=== PATIENT | female | born 1955 | race Asian ===

== ENCOUNTER 2023-11-02 09:31 | Emergency (ER) | payer MEDICARE, OTHER, SELFPAY ==
[2023-11-02] VITALS (9 sets, daily range): BP systolic 149–182; BP diastolic 66–77; PULSE 58–71; RESP 14–48; TEMP 36.3; O2SAT 98–100; BMI 17.9
--- NOTE | 2023-11-02 09:48 | EKG_ITS ---
[address] [address] Test Date: 2023-11-02 Pat Name: Lakshmi Murillo Department: ED Room: Gender: Female Window And Door Installer: Nikita Preston : 1955 Requested By: Order Number: [id number] Reading MD: Juan Alberto Hollis Measurements Intervals [place] Rate: 72 P: 86 OK: 164 QRS: 77 QRSD: 78 T: 75 QT: 404 QTc: 442 Interpretive Statements Normal sinus rhythm Possible Left atrial enlargement Electronically Signed On 11-06-2023 9:14:32 PDT by Juan Alberto Hollis
--- NOTE | 2023-11-02 10:43 | ED.WEAKNESS ---
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 She has not anticoagulation takes amlodipine for blood pressure. She reports increasing fatigue. She was actually seen evaluated it would be Hospital on 10/27/2023 for a shaking spasm episode. feels like she may have had a seizure. She had some mild shaking and confusion afterwards and had some left-sided numbness which was new. At that time she had a workup including head CT and CT angio stroke consult was done who recommended an MRI. However after 8 hours of waiting family decided that they did not want to wait for the MRI. Related Data Home Medications Medication Instructions Recorded Confirmed isosorbide mononitrate 30 mg 30 mg PO DAILY 11/02/23 11/02/23 tablet,extended release 24 hr meclizine 25 mg tablet 12.5 mg PO TID PRN 11/02/23 11/02/23 pantoprazole 40 mg tablet,delayed 40 mg PO BID 11/02/23 11/02/23 release triamterene 37.5 See Rx Instructions PO .COMPLEX 11/02/23 11/02/23 mg-hydrochlorothiazide 25 mg tablet Previous Rx's Medication Instructions Recorded levetiracetam 500 mg tablet 500 mg PO Q12H #60 tabs 11/02/23 ([place]) Allergies Allergy/AdvReac Type Severity Reaction Status Date / Time No Known Drug Allergies Allergy Verified 11/02/23 09:38 Patient History Social History Smoking Status: Unknown if ever smoked Smoking Status: Unknown if ever smoked alcohol intake frequency: holidays/special occasions only Substance Use Type: does not use Exam Initial Vital Signs Initial Vital Signs: Vital Signs Temperature 97.4 F L 11/02/23 09:38 Pulse Rate 71 11/02/23 09:38 Respiratory Rate 14 11/02/23 09:38 Blood Pressure 149/66 H 11/02/23 09:38 Pulse Oximetry 99 11/02/23 09:38 Oxygen Delivery Method Room Air 11/02/23 09:38 GENERAL: Alert pleasant 68-year-old female HEENT: Head atraumatic,EOMI, pupils reactive, face symmetric, moist mucous membranes CARDIOVASCULAR: Regular rate and rhythm without murmurs, rubs or gallops. RESPIRATORY: Breath sounds equal bilaterally, no wheezes rales or rhonchi. ABDOMEN: Soft, nontender. Normoactive bowel sounds all 4 quadrants. No guarding or rebound. EXTREMITIES: Normal range of motion, no clubbing or edema. Neurovascularly intact NEUROLOGICAL: Alert and oriented x4. Persistent right-sided weakness left side good strength is strong in both arm and leg no facial droop SKIN: Warm, dry, no laceration, no petechiae, no rashes or lesions. Course Orders Ordered: ED Orders 11/02/23 09:42 EKG-12 Lead Stat 11/02/23 11:15 XR chest 1V Stat 11/02/23 11:16 MR head/brain wo con Stat 11/02/23 11:33 COVID19 -Nasal RAPID Stat 11/02/23 11:57 Complete Blood Count AUTO DIFF Stat Comprehensive Metabolic Panel Stat Lipase Stat PTT Partial Thromboplastin Gilberto Stat Prothrombin Time INR Stat Troponin & CK Cardiac Panel Stat Vital Signs Vital signs: Vital Signs - 8 hr 11/02/23 09:38 11/02/23 10:42 11/02/23 10:43 Temperature 97.4 F L Pulse Rate 71 68 Respiratory Rate 14 Blood Pressure 149/66 H 182/77 H Pulse Oximetry 99 99 Oxygen Delivery Method Room Air 11/02/23 10:43 11/02/23 11:00 11/02/23 11:00 Temperature Pulse Rate 65 58 L Respiratory Rate Blood Pressure 153/67 H Pulse Oximetry 99 99 Oxygen Delivery Method 11/02/23 11:30 11/02/23 12:41 11/02/23 12:43 Temperature Pulse Rate 59 L 64 61 Respiratory Rate 16 Blood Pressure Pulse Oximetry 99 99 100 Oxygen Delivery Method 11/02/23 12:43 Temperature Pulse Rate Respiratory Rate Blood Pressure 157/70 H Pulse Oximetry Oxygen Delivery Method MDM - Weakness Lab Data 11/02/23 11:57 11/02/23 11:57 Labs: Lab Results 11/02/23 11/02/23 Range/Units 11:33 11:57 WBC 5.6 (4.5-11.0) X10^3/uL RBC 4.26 (4.0-5.2) X10^6/uL Hgb 13.2 (12.0-16.0) g/dL Hct 37.3 (36-46) % MCV 87.5 (80-100) fL MCH 31.1 (26-34) PG MCHC 35.5 (30-36) % RDW 12.3 (11.6-14.8) % Plt Count 220 (150-400) X10^3/uL Neut % (Auto) 63.1 (50-75) % Lymph % (Auto) 29.2 (25-40) % [place] % (Auto) 6.0 (3-14) % Eos % (Auto) 1.1 L (2-4) % Baso % (Auto) 0.6 (0-2) % Neut # (Auto) 3500 (2164-7456) /uL Lymph # (Auto) 1600 (1399-6604) /uL [place] # (Auto) 300 (0-900) /uL Eos # (Auto) 100 (0-450) /uL Baso # (Auto) 0 (0-100) /uL PT 10.7 (9.4-12.5) SECONDS INR 0.9 (0.9-1.3) APTT 37 H (25.1-36.5) SECONDS Sodium 131 L (137-145) mmol/L Potassium 3.9 (3.4-5.1) mmol/L Chloride 93 L (98-107) mmol/L Carbon Dioxide 27 (22-32) mmol/L BUN 13 (7-17) mg/dL Creatinine 0.57 (0.52-1.04) mg/dL Estimated GFR > 60 (>60) mL/min BUN/Creatinine Ratio 22.8 H (6-22) Glucose 95 (80-110) mg/dL Calcium 9.6 (8.4-10.2) mg/dL Total Bilirubin 0.6 (0.2-1.3) mg/dL AST 27 (14-36) IU/L ALT 24 (<35) IU/L Alkaline Phosphatase 93 (38-126) U/L Total Creatine Kinase 46 (30-135) U/L Troponin I < 0.012 (0.01-0.034) ng/mL Total Protein 7.5 (6.3-8.2) g/dL Albumin 4.7 (3.5-5.0) g/dL Globulin 2.8 (1.7-4.1) g/dL Albumin/Globulin Ratio 1.7 (1.0-2.8) Lipase 112 (23-300) U/L SARS-CoV-2 (PCR) Negative (Negative) Urine Dip Bedside Urine Glucose Negative Bedside Urine Bilirubin - Negative Bedside Urine Ketone - Negative Urine Specific [place] 1.010 Bedside Urine Occult Blood - Negative Bedside Urine pH 7 Bedside Urine Protein - Negative Bedside Urine Urobilinogen - Negative Bedside Urine Nitrite - Negative Bedside Urine Leukocytes - Negative Esterase Imaging Data Chest x-ray: Radiologist Impression: PROCEDURE: XR CHEST 1V INDICATIONS: chest pain TECHNIQUE: One view of the chest was acquired. COMPARISON: None. FINDINGS: Overlying EKG lead slightly limit evaluation. Surgical changes and devices: None. Lungs and pleura: Lungs are clear. Prominent right-sided nipple shadow. No pleural effusions or pneumothorax. Mediastinum: Mediastinal contours appear normal. Heart size is normal. Bones and chest wall: No suspicious bony lesions. Overlying soft tissues appear unremarkable. IMPRESSION: No acute cardiopulmonary process. Dictated by: Feng Rodriguez M.D. on 11/02/2023 at 12:23 MR Brain: Radiologist Impression: PROCEDURE: MR HEAD/BRAIN WO CON INDICATIONS: new onset weakness x 1 week prior cva TECHNIQUE: Non-contrast axial T1 spin echo, axial T2 fast spin echo, sagittal and axial FLAIR, coronal T2 fast spin echo, axial gradient echo, axial diffusion and ADC through the brain. COMPARISON: [facility], , XR CHEST 1V, 11/02/2023, 11:32. FINDINGS: Image quality: Excellent. CSF spaces: Ventricles appear symmetric in size and shape. Basal cisterns are patent. No extra-axial fluid collections. Brain: Focal encephalomalacia and volume loss can be seen involving the posterior superior aspect of the left cerebral hemisphere. Hemosiderin deposition can be seen at this site. No intracranial mass effects. There is cerebral volume loss for age. There are periventricular and deep white matter chronic small vessel ischemic changes. Brainstem appears normal. Diffusion-weighted images show no acute infarct. Normal intravascular flow voids are present. Symmetric calcification can be seen involving the basal ganglia, which is considered to be normal for age. Skull and face: Left-sided craniotomy change is seen. Calvarial bone marrow is normal in signal. Orbits are normal. Sinuses: Sinuses and mastoids are clear. IMPRESSION: No acute intracranial hemorrhage is seen. No acute intracranial process is seen. Focal volume loss and encephalomalacia seen involving the posterior superior left cerebral hemisphere. Hemosiderin deposition can be seen at this site. Prior section change is suspected. However, please correlate with known patient history. Dictated by: Franko Verduzco M.D. on 11/02/2023 at 12:13 ECG Data Attestation: I personally reviewed and interpreted this ECG as follows: Interpretation: Normal sinus rhythm rate 72 MN interval 164 QRS 70 MDM Narrative Medical decision making narrative: MDM CC: Ongoing weakness Complicating co-morbidities: Prior intracranial hemorrhage in 2021 with craniectomy possible recent seizure Data collected from: Medical records reviewed: [facility] Differential considered: Infection, CVA Exam documented above, pertinent findings include: Persistent right-sided deficits secondary to previous stroke she is awake and alert mildly Lab Test results independently reviewed as above. Pertinent findings: WBC 5.6 hemoglobin 13.2 hematocrit 37.3 platelets 220, sodium 131 (previously 132) potassium 3.9 chloride 93 carbon dioxide 27 BUN 13 creatinine 0.5, bilirubin 0.6 AST 27 ALT 24 alk-phos 93 troponin negative COVID negative Urinalysis negative Independently reviewed EKG as above: Sinus rhythm without ischemia Imaging studies independently reviewed: Chest x-ray no acute cardiopulmonary process MRI no acute process however focal volume loss and encephalomalacia involving posterior superior left cerebral hemisphere Consultations: none Treatments: none Discussion: Patient is 68-year-old female presenting today with ongoing weakness. Weakness has been ongoing for about 1 week. Patient and report that she previously was doing elliptical and walking 2 miles a day however she had a probable seizure about a week ago. She has been seen by PCP she now has referrals to Cardiology and Neurology but they have not yet gone through. She has not had any sort of recurrent seizure. They state that she previously was on Keppra for about a year after her stroke but they took her off of it. It sounds like patient and has been did not want her to be on it any longer. Blood work has been reviewed she has very mild hyponatremia of 131 which is relatively stable last week was 132 unlikely causing her symptoms. She has no evidence of infection leukocytosis COVID. At this time discussed with him about restarting Keppra in the event that she just had a seizure. They are agreeable to this I think it is reasonable her MRI does have a pretty large remote infarct. I do in encourage them to continue neurology consultation and to return to the ED if there is recurrent seizure. She does not drive at baseline. Discharge Plan Departure Patient Disposition: Home Clinical Impression: Seizure Instructions: DI for Seizure Disorder -- Adult Activity Restrictions/Additional Instructions: *You have been diagnosed with seizure, fatigue *What to do: At this time no cause of your increased fatigue. I recommend activity as tolerated. Please see neurology and cardiology as scheduled Do not drive *Continue to take medications as directed Keppra 500 mg twice a day *Follow up with your primary care provider in 2-3 days or call [phone] *Return to ER if you should have recurrent seizure increased confusion weakness or any new, worsening or concerning symptoms Prescriptions: New levetiracetam [Keppra] 500 mg tablet 500 mg PO Q12H Qty: 60 0RF No Action triamterene-hydrochlorothiazid 37.5-25 mg tablet See Rx Instructions PO .COMPLEX Rx Instructions: 1 po on Monday, Wednesdays and Fridays only pantoprazole 40 mg tablet,delayed release (DR/EC) 40 mg PO BID isosorbide mononitrate 30 mg tablet extended release 24 hr 30 mg PO DAILY meclizine 25 mg tablet 12.5 mg PO TID PRN Referrals: Aida Okeefe FNP-YELENA [Primary Care Provider] - Stand Alone Forms: Patient Portal/API
--- NOTE | 2023-11-02 11:15 | DI.RAD.S_ITS ---
PROCEDURE: XR CHEST 1V INDICATIONS: chest pain TECHNIQUE: One view of the chest was acquired. COMPARISON: None. FINDINGS: Overlying EKG lead slightly limit evaluation. Surgical changes and devices: None. Lungs and pleura: Lungs are clear. Prominent right-sided nipple shadow. No pleural effusions or pneumothorax. Mediastinum: Mediastinal contours appear normal. Heart size is normal. Bones and chest wall: No suspicious bony lesions. Overlying soft tissues appear unremarkable. IMPRESSION: No acute cardiopulmonary process. Dictated by: Feng Rodriguez M.D. on 11/02/2023 at 12:23 Approved by: Feng Rodriguez M.D. on 11/02/2023 at 12:23
--- NOTE | 2023-11-02 11:16 | DI.MRI.S_ITS ---
PROCEDURE: MR HEAD/BRAIN WO CON INDICATIONS: new onset weakness x 1 week prior cva TECHNIQUE: Non-contrast axial T1 spin echo, axial T2 fast spin echo, sagittal and axial FLAIR, coronal T2 fast spin echo, axial gradient echo, axial diffusion and ADC through the brain. COMPARISON: [facility], CR, XR CHEST 1V, 11/02/2023, 11:32. FINDINGS: Image quality: Excellent. CSF spaces: Ventricles appear symmetric in size and shape. Basal cisterns are patent. No extra-axial fluid collections. Brain: Focal encephalomalacia and volume loss can be seen involving the posterior superior aspect of the left cerebral hemisphere. Hemosiderin deposition can be seen at this site. No intracranial mass effects. There is cerebral volume loss for age. There are periventricular and deep white matter chronic small vessel ischemic changes. Brainstem appears normal. Diffusion-weighted images show no acute infarct. Normal intravascular flow voids are present. Symmetric calcification can be seen involving the basal ganglia, which is considered to be normal for age. Skull and face: Left-sided craniotomy change is seen. Calvarial bone marrow is normal in signal. Orbits are normal. Sinuses: Sinuses and mastoids are clear. IMPRESSION: No acute intracranial hemorrhage is seen. No acute intracranial process is seen. Focal volume loss and encephalomalacia seen involving the posterior superior left cerebral hemisphere. Hemosiderin deposition can be seen at this site. Prior section change is suspected. However, please correlate with known patient history. Dictated by: Franko Verduzco M.D. on 11/02/2023 at 12:13 Approved by: Franko Verduzco M.D. on 11/02/2023 at 12:14
[2023-11-02 12:10] LABS: Add Manual Diff / Slide Review NO; Basophils Absolute Auto 0 /uL (0-100); Basophils Percent Auto 0.6 % (0-2); Eosinophils Absolute Auto 100 /uL (0-450); Eosinophils Percent Auto 1.1 % (2-4); Hematocrit 37.3 % (36-46); Hemoglobin 13.2 g/dL (12.0-16.0); Lymphocytes Absolute Auto 1600 /uL (1100-4500); Lymphocytes Percent Auto 29.2 % (25-40); Mean Corpuscular HGB Conc 35.5 % (30-36); Mean Corpuscular Hemoglobin 31.1 PG (26-34); Mean Corpuscular Volume 87.5 fL (80-100); Monocytes Absolute Auto 300 /uL (0-900); Neutrophils Absolute Auto 3500 /uL (1500-7000); Neutrophils Percent Auto 63.1 % (50-75); Platelet Count 220 X10^3/uL (150-400); Red Blood Cell Count 4.26 X10^6/uL (4.0-5.2); Red Cell Distribution Width 12.3 % (11.6-14.8); White Blood Cell Count 5.6 X10^3/uL (4.5-11.0)
[2023-11-02 12:13] LABS: INR 0.9 (0.9-1.3); Prothrombin Time 10.7 SECONDS (9.4-12.5)
[2023-11-02 12:16] LABS: PTT Partial Thromboplastin Tim 37 SECONDS (25.1-36.5)
[2023-11-02 12:23] LABS: COVID19 -Nasal RAPID Negative (Negative)
[2023-11-02 12:24] LABS: Alanine Aminotransferase 24 IU/L (<35); Albumin 4.7 g/dL (3.5-5.0); Albumin Globulin Ratio 1.7 (1.0-2.8); Alkaline Phosphatase 93 U/L (38-126); Aspartate Aminotransferase 27 IU/L (14-36); BUN Creatinine Ratio 22.8 (6-22); Bilirubin Total 0.6 mg/dL (0.2-1.3); Blood Urea Nitrogen 13 mg/dL (7-17); Calcium 9.6 mg/dL (8.4-10.2); Carbon Dioxide 27 mmol/L (22-32); Chloride 93 mmol/L (98-107); Creatine Kinase 46 U/L (30-135); Estimated Glomerular Filt Rate > 60 mL/min (>60); Globulin 2.8 g/dL (1.7-4.1); Glucose 95 mg/dL (80-110); HEMOLYSIS 22 (0-50); Lipase 112 U/L (23-300); Potassium 3.9 mmol/L (3.4-5.1); Sodium 131 mmol/L (137-145); Total Protein 7.5 g/dL (6.3-8.2)
[2023-11-02 12:32] LABS: Troponin I < 0.012 ng/mL (0.01-0.034)
== END 2023-11-02 13:40 | disposition home or self-care (01) ==
PROVIDERS: Emergency Provider Emergency Medicine; PCP Nurse Practitioner Family
DX: R56.9 Unspecified convulsions (principal); R07.9 Chest pain, unspecified; Z11.52 Encounter for screening for COVID-19; Z86.73 Personal history of transient ischemic attack (TIA), and cerebral infarction without residual deficits
CPT/HCPCS: 36415; 70551; 71045; 80053; 81003; 82550; 83690; 84484; 85025; 85610; 85730; 87635; 93005; 99283; 99284

== ENCOUNTER 2024-05-11 01:55 | Emergency (ER) | payer MEDICARE, OTHER, SELFPAY ==
[2024-05-11 02:05] VITALS: BP 157/67; PULSE 82; RESP 16; TEMP 36.8; O2SAT 98; BMI 19.1
--- NOTE | 2024-05-11 02:09 | DI.RAD.S_ITS ---
PROCEDURE: XR CHEST 2V INDICATIONS: cough x2 days TECHNIQUE: 2 views of the chest were acquired. COMPARISON: [facility], , XR CHEST 1V, 11/02/2023, 11:32. FINDINGS: Surgical changes and devices: None. Lungs and pleura: Lungs are clear. No pleural effusions or pneumothorax. Right-sided nipple shadow unchanged from. Mediastinum: Mediastinal contours are normal. Heart size is normal. Bones and chest wall: No suspicious bony abnormalities. Soft tissues appear unremarkable. IMPRESSION: No acute cardiopulmonary abnormality is seen. Note: This final report is concordant with the preliminary after-hours interpretation provided by [employer] Approved by: Kendrick Murillo M.D. on 05/11/2024 at 8:15
[2024-05-11 02:55] LABS: Influenza A - CEPHEID Flu A POSITIVE (NEGATIVE); Influenza B - CEPHEID Flu B NEGATIVE (NEGATIVE); Respiratory Syncytial Virus Negative (Negative)
--- NOTE | 2024-05-11 02:58 | ED_ITS ---
HPI - URI/Sore Throat General Chief Complaint: Upper Respiratory Symptoms Stated Complaint: Coughing x 2 days; rule out pneumonia Time Seen by Provider: 05/11/24 02:39 Source: patient and family Mode of arrival: Ambulatory History of Present Illness HPI Narrative: Patient is a female with a history of stroke in November 2021, who presents with a cough that started yesterday and has persisted until today. She reports associated muscle aches but denies fever, chills, congestion, or sore throat. The patient has no known exposure to flu or COVID-19. She has residual weakness in her right arm and leg from the stroke. She is currently taking Keppra for seizures and medication for blood pressure. Medications: Keppra, antihypertensive medication. Past Medical History: Stroke in November 2021 with residual right-sided we akness. Related Data Home Medications Medication Instructions Recorded Confirmed isosorbide mononitrate 30 mg 30 mg PO DAILY 11/02/23 11/02/23 tablet,extended release 24 hr meclizine 25 mg tablet 12.5 mg PO TID PRN 11/02/23 11/02/23 pantoprazole 40 mg tablet,delayed 40 mg PO BID 11/02/23 11/02/23 release triamterene 37.5 See Rx Instructions PO .COMPLEX 11/02/23 11/02/23 mg-hydrochlorothiazide 25 mg tablet Previous Rx's Medication Instructions Recorded levetiracetam 500 mg tablet 500 mg PO Q12H #60 tabs 01/05/24 (Keppra) Allergies Allergy/AdvReac Type Severity Reaction Status Date / Time No Known Drug Allergies Allergy Verified 11/02/23 09:38 Review of Systems Review of Systems Narrative: Constitutional: Reports muscle aches. Respiratory: Reports persistent cough. Neurological: History of stroke with residual right-sided weakness. HEENT: Denies sore throat, congestion. Cardiovascular: Denies chest pain, palpitations. Gastrointestinal: Denies nausea, vomiting, diarrhea. Genitourinary: Denies dysuria, hematuria. Musculoskeletal: Denies joint pain, swelling. Skin: Denies rash, lesions. Psychiatric: Denies anxiety, depression. Patient History Social History Smoking Status: Never smoker Smoking Status: Never smoker alcohol intake frequency: holidays/special occasions only Exam Narrative Exam Narrative: General: Well appearing, well nourished, in no distress. Skin: Good turgor, no rash, unusual bruising or prominent lesions. Head: Normocephalic, atraumatic. HEENT: Conjunctiva clear, EOM intact, PERRL, Mucous membranes moist. Posterior oropharynx clear, no uvula deviation, no peritonsillar swelling, no purulent drainage. Neck: Supple, normal ROM. No significant anterior cervical lymphadenopathy, no goiter, no signs of crepitus or rash. Heart: Regular rate and rhythm, no murmur or gallop or rubs. Lungs: Clear to auscultation. No rales, rhonchi, or wheezes. Abdomen: Soft and nontender. Bowel sounds normal. No mass or hernia. Back: Spine normal without deformity or tenderness, no CVA tenderness. Extremities: No deformities, edema. Peripheral pulses intact. Neurologic: CN 2-12 normal. Normal sensation and motor exam. History of stroke with residual right-sided weakness. Psychiatric: Oriented X3. Normal mood and affect. Initial Vital Signs Initial Vital Signs: Vital Signs Temperature 98.3 F 05/11/24 02:05 Pulse Rate 82 05/11/24 02:05 Respiratory Rate 16 05/11/24 02:05 Blood Pressure 157/67 H 05/11/24 02:05 Pulse Oximetry 98 05/11/24 02:05 Oxygen Delivery Method Room Air 05/11/24 02:05 Course Orders Ordered: ED Orders 05/11/24 02:09 XR chest 2V Stat 05/11/24 02:10 Covid-19 + FLU A/B + RSV - PCR Stat Vital Signs Vital signs: Vital Signs - 8 hr 05/11/24 02:05 05/11/24 03:30 Temperature 98.3 F Pulse Rate 82 80 Respiratory Rate 16 16 Blood Pressure 157/67 H 147/67 H Pulse Oximetry 98 97 Oxygen Delivery Method Room Air Room Air MDM - URI/Sore Throat Lab Data Labs: Lab Results 05/11/24 Range/Units 02:10 SARS-CoV-2 (PCR) Negative (Negative) Influenza A (RT-PCR) Flu a positive H (NEGATIVE) Influenza B (RT-PCR) Flu b negative (NEGATIVE) RSV (PCR) Negative (Negative) Patient found to be flu A positive MDM Narrative Medical decision making narrative: INITIAL EVALUATION AND PLAN: - Chest X-ray: No signs of pneumonia, small nodule noted, recommend follow-up outpatient X-ray. - Viral panel pending, suspect respiratory tract infection. - Symptomatic treatment with Tylenol, ibuprofen, decongestants. - Recommend hot tea with honey, [id number] cough medicines, and humidifier use. - Follow-up with primary care doctor if symptoms persist or worsen. - Return to the emergency department if experiencing severe symptoms such as difficulty breathing or inability to eat. Differential diagnosis includes but is not limited to: viral respiratory infection, bronchitis, post-stroke complications. pneumonia on initial evaluation patient is well-appearing and in no acute distress she is not tachycardic, hypotensive or appearing uncomfortable, physical exam shows no signs of significant swelling in the posterior oropharynx or signs of bacterial infection, suspect likely viral infection in the context of congestion, myalgias, cough, no fever at this time. We will test for COVID influenza, RSV. Chest x-ray reviewed with no acute intra thoracic pathology, small nodule that may be overlying nipple shadow, communicated this with the patient and the need to repeat chest x-ray outpatient for evaluation of resolution. patient found to be influenza A positive, likely the cause of her symptoms, discussed this with the family, answered all questions and encouraged conservative care including Tylenol, ibuprofen [id number] cough medicines, hot tea with honey and to return to the emergency department for worsening symptoms. Discharge Plan Departure Patient Disposition: Home Clinical Impression: Influenza A Instructions: DI for Influenza -- Adult Activity Restrictions/Additional Instructions: you were seen in the emergency department today and found to have influenza this is likely the cause of your symptoms please continue using Tylenol, ibuprofen and conservative management while you are feeling ill. Please mask and do good washing your hands in order to decrease the chance of spreading that is infection to others. Please follow up and get a repeat chest x-ray with your primary care physician in order to further evaluate for small nodule that was identified on today's imaging. Prescriptions: No Action levetiracetam [Keppra] 500 mg tablet 500 mg PO Q12H Qty: 60 1RF triamterene-hydrochlorothiazid 37.5-25 mg tablet See Rx Instructions PO .COMPLEX Rx Instructions: 1 po on Monday, Wednesdays and Fridays only pantoprazole 40 mg tablet,delayed release (DR/EC) 40 mg PO BID isosorbide mononitrate 30 mg tablet extended release 24 hr 30 mg PO DAILY meclizine 25 mg tablet 12.5 mg PO TID PRN Referrals: Aida Okeefe FNP-BC [Primary Care Provider] - Stand Alone Forms: Patient Portal/API/Survey
[2024-05-11 03:01] LABS: COVID-19 CEPHEID 4-PLEX PCR Negative (Negative)
[2024-05-11 03:30] VITALS: BP 147/67; PULSE 80; RESP 16; O2SAT 97
== END 2024-05-11 03:32 | disposition home or self-care (01) ==
PROVIDERS: Emergency Provider Emergency Medicine; PCP Nurse Practitioner Family
DX: J10.1 Influenza due to other identified influenza virus with other respiratory manifestations (principal); R91.1 Solitary pulmonary nodule; I69.351 Hemiplegia and hemiparesis following cerebral infarction affecting right dominant side
CPT/HCPCS: 0241U; 71046; 99283